=== PATIENT | female | born 1935 | race African-American/Black ===

== ENCOUNTER 2016-10-28 13:46 | Inpatient (IN) ==
--- NOTE | 2016-10-28 14:24 | XRay Report ---
XR chest 1V portable Indication: Cardiomegaly Comparison: 26 July 2016 Findings: The heart and mediastinum are normal in size and configuration. The pulmonary vascularity is normal in caliber. Lung volumes are increased with prominent bronchial markings. Clips are present in the right axilla from previous surgery. No lung infiltrates, effusions, pneumothorax or other abnormality is demonstrated. Impression: Chronic lung changes. No acute process or significant change. PROCEDURE INTERPRETED AT [facility] DEPARTMENT OF RADIOLOGY Final Report Signed by: Dr. Matt Messer
--- NOTE | 2016-10-28 14:29 | CT Report ---
CT brain Indication: Hemiparesis Comparison: 05 June 2016 Technique: Axial CT imaging of the brain is performed without contrast with 3 mm increments. Findings: No evidence of hemorrhage, mass mass effect midline shift or acute infarct seen. There is moderate diffuse cerebral atrophy. There are areas of decreased density seen within the white matter. Focal decreased density and volume loss is present in the left basal ganglia similar to previous exam. Otherwise the brain parenchyma attenuation and differentiation appears within normal limits. The ventricles and cisterns are normal in caliber. No cranial or skull base abnormality is identified. Impression: No evidence of acute process or interval change. PROCEDURE INTERPRETED AT [facility] DEPARTMENT OF RADIOLOGY Final Report Signed by: Dr. Matt Messer
[2016-10-28 14:30] LABS: Basophils % 0.5 % (0.0-0.8); Eosinophils # 0.2 10*3/uL (0.0-0.87); Eosinophils % 2.2 % (0.00-10.9); Hematocrit 37.8 VOL% (35.7-47.0); Hemoglobin 12.1 GM/DL (12.0-16.0); Immature Granulocytes % 0.3 %; Immature Granulocytes Absolute 0.02 #; Lymphocytes # 2.5 10*3/uL (1.4-4.0); Lymphocytes % 33.3 % (21.3-54.2); Mean Corpuscular Hemoglobin 25 PG (27-34); Mean Corpuscular Volume 77.3 FL (87-102); Monocytes # 0.6 10*3/uL (0.11-0.8); Monocytes % 7.4 % (1.7-12.7); Neutrophils # 4.2 10*3/uL (1.4-7.4); Neutrophils % 56.3 % (38.7-73.9); Platelet Count 261 T/CUMM (130-400); Red Blood Count 4.89 MC/CUMM (3.8-5.5); Red Cell Distribution Width 14.9 % (9.3-17.3); White Blood Count 7.4 T/CUMM (4-12)
--- NOTE | 2016-10-28 14:37 | Emergency Department Note ---
Flora Brewster Gwan, am scribing for, and in the presence of, Todd Bermeo MD 14:04 . Elvie Brewster James D, MD, personally performed the services described in this documentation, ascribed by Deep Hines in my presence, and it is both accurate and complete 437 . Arrival - Arrival Chief Complaint: Weakness Stated Complaint: not able to walk ED Nursing Triage Note: c/o weakness and not being able to walk x1 day Mode of Arrival: Wheelchair Limitations: No Limitations Source: Patient, Old Records Reviewed, RN Notes Reviewed - History of Present Illness HPI Narrative: Pt is a 81 y/o female, with a hx of CVA and Carcinoma of the left breast, who presents to the ED with a c/o weakness and no being able to walk with an onset of 1 day. During exam, patient spoke with slow/slurred speech. She is accompanied by her granddaughter. Patient stated that she is weaker on her left side more than her right. Patient continued to note that she fell some time ago and broke her left hip. Granddaughter noted that pt usually walks with a walker and that her speech is altered. Pt has a PMHx of HTN, dyslipidemia, thyroid disorder and osteoporosis. No other problems/complaints reported in ED. length of time since onset would essentially be last night at bedtime. Patient awakened with symptoms this morning. Daughter confirms that the patient has had difficulty swallowing today and difficulty speaking today. She has had difficulty standing from sitting. Onset (ago): day(s) Consistency: constant Severity: moderate Allergies/Adverse Reactions: Allergies Allergy/AdvReac Type Severity Reaction Status Date / Time aspirin Allergy Nose Bleed Verified 06/05/16 15:30 Penicillins AdvReac HIVES Verified 06/05/16 15:30 Home Medications: Home Medications Medication Instructions Recorded Confirmed Type FLUoxetine [PROzac] 10 mg PO QAM 01/11/16 07/24/16 History Pantoprazole Tab [Protonix Tab] 40 mg PO DAILY 06/22/16 07/24/16 History Amlodipine Besylate 10 mg PO DAILY 07/24/16 07/24/16 History Levothyroxine Tab [Synthroid Tab] 50 mcg PO DAILY 07/24/16 07/24/16 History Clopidogrel [Plavix] 75 mg PO QAM 10/28/16 10/28/16 History Review of System - Review of System 12 point system: reviewed and no additional remarkable complaints except as stated - Review of System Constitutional: Present: as per HPI, weakness Neurological: Present: as per HPI, other (slow/slurred speech) Medical,Surgical,& Family Hx - Medical History Cardio: History of: Hypertension Psychological: History of: Depression (after ) Neurology: History of: Cerebrovascular Accident HEENT: History of: Eye Problem Endocrine: History of: Dyslipidemia, Thyroid Disorder Gastrointestinal: History of: GERD Musculoskeletal: History of: Osteoporosis, Musculoskeletal Problems Other: History of: Cancer (carcinoma of the left breast) - Surgical History Thoracic Surgeries: Patient denies;: Organ Transplant HEENT Surgeries: Surgical HX of: Eye Surgery (cataract surgery) Abdominal Surgeries: Surgical HX of: Appendectomy Reproductive Surgeries: Surgical HX of;: Breast Surgery (masectomy left side - 30 years ago), Hysterectomy (partial) - Family History Family History: Reports;: Family Cancer (grandmother), Family Diabetes (mother) , Family Hypertension - Social History Smoking Status: Never smoker Frequency of Alcohol Use: None Type of Drug Use: None Exam Vital Signs: Vital Signs Temperature 99.1 F 10/28/16 13:47 Pulse Rate 80 10/28/16 13:47 Respiratory Rate 18 10/28/16 14:02 Blood Pressure 142/73 10/28/16 13:47 O2 Sat by Pulse Oximetry 98 10/28/16 13:47 GENERAL: This is a well-nourished well-developed chronically ill-appearing black female in no apparent distress. VITAL SIGNS: Reviewed HEENT: Head is atraumatic and normocephalic. Pupils are equal round react to light. Extraocular movements are intact. Oropharynx is benign with moist mucous membranes. NECK: Neck is soft and supple without tenderness. There are no masses. There is no lymphadenopathy. LUNGS: Lungs are clear to auscultation. Chest rises symmetrically. There is no chest wall tenderness. CV: Heart is regular rate and rhythm without murmurs rubs or gallops. ABDOMEN: Abdomen is soft, nontender to palpation. There are no abdominal abnormal masses palpated. There is no organomegaly. Bowel sounds are present and active. SKIN: Skin is warm and dry. No rash. EXTREMITIES: Patient has full range of motion without tenderness. There is no pedal edema. NEUROLOGIC: Awake alert and oriented. Cranial nerves II through XII are grossly intact with the exception of tongue deviation to the right. Motor is 4 over 5 in all extremities bilaterally. Deep tendon reflexes are 2+ and bilaterally equal. Expressive aphasia is present. Course Course Narrative: TPA was not initiated due to patient awakening with symptoms this morning. - Consultations Consultation #1: Discussed with Dr. Ledesma. Patient will be admitted to Dr. Mckeon. Initial orders written for him. MRI of the head will be performed. Time: 15:21 Results - Labs CBC & BMP: 10/28/16 14:08 10/28/16 14:08 Lab Results: I have reviewed the patients labs - EKG EKG results: interpreted by ERMD - Impressions EKG: Normal sinus rhythm with rate of 71, low voltage QRS, nonspecific ST-T wave changes, normal axis. - Diagnostic Findings Procedure: Chest x-ray: image reviewed by me (No infiltrates, no pleural effusions, no cardiomegaly.), CT: image reviewed by me, report reviewed by me ( CT head: No acute intracranial hemorrhage or lesion.) Disposition Clinical Impression: Stroke Case discussed with: patient Disposition: Still a Patient Time of Disposition: 15:20
[2016-10-28 14:45] LABS: PT Patient Result 10.9 SECS; Partial Thromboplastin Time 27.3 SECS (0-40)
[2016-10-28 14:51] LABS: Albumin 3.8 G/DL (3.4-5.0); Bilirubin,Total 0.4 MG/DL (0.2-1.0); Calcium 9.9 MG/DL (8.5-10.1); Osmolality,Calculated 288.4 MOS/KG (273-304); Potassium 4.1 MMOL/L (3.5-5.1); Total Protein 7.8 G/DL (6.4-8.3)
[2016-10-28 15:13] LABS: Apearance,Urine CLEAR (Clear); Bacteria,Urine Occasional /HPF (Few); Bilirubin,Urine Negative (Negative); Blood, Urine Negative (Negative); Glucose,Urine (UA) Negative (Negative); Ketones,Urine Negative (Negative); Nitrite,Urine Negative (Negative); Protein,Urine Negative; RBC,Urine <1 /HPF (0-4); Squamous Epithelial Cell,Urine Occasional /HPF (0-10); Urine Color Straw (Yellow); Urine Specific Gravity 1.013 (1.001-1.035); Urine Urobilinogen < 2.0 EU/DL (0.2-1.0); WBC,Urine 2 /HPF (0-6)
[2016-10-28 15:21] LABS: Barbiturates Screen,Urine Negative (Negative); Benzodiazepines Screen,Urine Negative (Negative); Cannabinoid Screen,Urine Negative (Negative); Opiate Screen,Urine Negative (Negative); Phencyclidine Screen,Urine Negative (Negative)
--- NOTE | 2016-10-28 15:26 | EKG Report ---
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
--- NOTE | 2016-10-28 17:33 | Internal Med History&Physical ---
Assessment and Plan (1) TIA (transient ischemic attack) Status: Acute Assessment and plan: 81-year-old female admitted to acute care * TIA versus acute CVA. Patient has weakness and slurred speech earlier. Her speech appears to be cleared now. She will be admitted. Her CT brain was negative. Will check MRI of brain to evaluate. Will check echocardiogram and carotid ultrasound. Will admit patient to a monitored bed. Will consult neurology when available. The ER physician had a conversation with patient and her family and they decided to stay here other than being transferred to another facility. * Hypertension. Continue current medication * Hyperlipidemia. Will check her lipid profile in the morning * History of previous CVA. Patient is on Plavix * Hypothyroidism. Continue treatment * Discussed with patient and her sister and grandson who are present in the room. Current Visit: Yes (2) History of stroke Status: Acute Current Visit: Yes (3) dyslipidemia Status: Chronic Current Visit: No (4) hypertension Status: Chronic Current Visit: No (5) hypothyroid Status: Chronic Current Visit: No History of Present Illness Chief complaint: Weakness and inability to walk with slurred speech History of present illness: Ms. Mcdaniels is a 81 year old female with history of previous CVA, hypertension, hypothyroidism, depression, dyslipidemia, gastroesophageal reflux disease and breast cancer in the past was brought to the emergency room by family with weakness and not been able to walk for about a day. Apparently patient had slurred speech while ER physician was examining her. She had a CT brain done which showed no acute changes. Patient usually uses a walker after her stroke about a year ago. Patient is seeing her speech is better now. She denies any chest pain or shortness of breath. She denies any nausea vomiting or diarrhea. She denies any fever or chills. She had difficulty walking and standing this morning. She lives with her granddaughter. No history of smoking or alcohol use Home Medications Medication Instructions Recorded Confirmed Type FLUoxetine [PROzac] 10 mg PO QAM 01/11/16 10/28/16 History Pantoprazole Tab [Protonix Tab] 40 mg PO QAM 06/22/16 10/28/16 History Amlodipine Besylate 10 mg PO QAM 07/24/16 10/28/16 History Levothyroxine Tab [Synthroid Tab] 50 mcg PO QAM 07/24/16 10/28/16 History Clopidogrel [Plavix] 75 mg PO QAM 10/28/16 10/28/16 History Allergies Allergy/AdvReac Type Severity Reaction Status Date / Time aspirin Allergy Nose Bleed Verified 06/05/16 15:30 Penicillins AdvReac HIVES Verified 06/05/16 15:30 Medical,Surgical,& Family Hx - Medical History Cardio: History of: Hypertension Psychological: History of: Depression (after ) Neurology: History of: Cerebrovascular Accident HEENT: History of: Eye Problem Endocrine: History of: Dyslipidemia, Thyroid Disorder Gastrointestinal: History of: GERD Musculoskeletal: History of: Osteoporosis, Musculoskeletal Problems Other: History of: Cancer (carcinoma of the left breast) - Surgical History Thoracic Surgeries: Patient denies;: Organ Transplant HEENT Surgeries: Surgical HX of: Eye Surgery (cataract surgery) Abdominal Surgeries: Surgical HX of: Appendectomy Reproductive Surgeries: Surgical HX of;: Breast Surgery (masectomy left side - 30 years ago), Hysterectomy (partial) - Family History Family History: Reports;: Family Cancer (grandmother), Family Diabetes (mother) , Family Hypertension - Social History Smoking Status: Never smoker Frequency of Alcohol Use: None Type of Drug Use: None Marital Status: Single Lives With:: Children Functional capacity: uses cane/walker 12 point system: reviewed and no additional remarkable complaints except as stated (Mentioned in HPI) Exam - Constitutional Exam: Examination: GENERAL: NAD. HEENT: PERRLA. EOMI. Mucous membranes are moist. NECK: Neck is supple. No JVD. No carotid bruit. No thyromegaly. CVS: Regular rate and rhythm. S1 and S2 are normal. RESPIRATORY: Lungs are clear. No rales or rhonchi. ABDOMEN: Soft and nontender. Bowel sounds are present. No hepatosplenomegaly. EXT: No edema. Peripheral pulses are present. JIG OPERATOR: Patient is awake, alert and oriented to time place and person. Cranial nerves II through XII are grossly intact. Motor strength is equal in both upper and lower extremities 5/5. Babinski is downgoing SKIN: Warm and dry. MSK: No obvious deformity. Results - Labs CBC & BMP: 10/28/16 14:08 10/28/16 14:08 Lab Results: I have reviewed the past 24 hour labs
[2016-10-28] MEDS ORDERED: ONDANSETRON 4 MG/2 ML VIAL IV PRN (19:40)
[2016-10-28] MEDS ORDERED: ACETAMINOPHEN 325 MG TABLET PO PRN (19:40)
[2016-10-28] MEDS: DOCUSATE SODIUM 100 MG CAPSULE PO SCH (20:39)
[2016-10-28] MEDS: SODIUM CHLORIDE 0.9% 1,000 ML IV SCH (20:39)
[2016-10-28] MEDS: ENOXAPARIN 40 MG/0.4 ML SYRINGE SUBCUT SCH (20:39)
[2016-10-29] MEDS: SODIUM CHLORIDE 0.9% 1,000 ML IV SCH ×3 (04:49→21:11)
[2016-10-29 05:47] LABS: Basophils # 0.1 10*3/uL (0.0-0.2); Basophils % 0.8 % (0.0-0.8); Eosinophils # 0.2 10*3/uL (0.0-0.87); Eosinophils % 2.6 % (0.00-10.9); Hematocrit 35.2 VOL% (35.7-47.0); Immature Granulocytes % 0.2 %; Immature Granulocytes Absolute 0.01 #; Lymphocytes # 2.4 10*3/uL (1.4-4.0); Lymphocytes % 38.8 % (21.3-54.2); Mean Corpuscular HGB Conc 31.3 GM/DL (32-36); Mean Corpuscular Hemoglobin 24 PG (27-34); Mean Corpuscular Volume 77.9 FL (87-102); Mean Platelet Volume 10.8 FL (9.6-12.0); Monocytes # 0.7 10*3/uL (0.11-0.8); Monocytes % 12.1 % (1.7-12.7); Neutrophils # 2.8 10*3/uL (1.4-7.4); Neutrophils % 45.5 % (38.7-73.9); Platelet Count 248 T/CUMM (130-400); Red Blood Count 4.52 MC/CUMM (3.8-5.5); Red Cell Distribution Width 14.9 % (9.3-17.3); White Blood Count 6.1 T/CUMM (4-12)
[2016-10-29] MEDS: LEVOTHYROXINE 50 MCG TABLET PO SCH (06:11)
[2016-10-29 06:21] LABS: Calcium 9.3 MG/DL (8.5-10.1); Osmolality,Calculated 292.7 MOS/KG (273-304); Potassium 4.2 MMOL/L (3.5-5.1)
[2016-10-29 06:43] LABS: Risk Ratio 3.65; VLDL CHOLESTEROL 16.2 MG/DL
--- NOTE | 2016-10-29 08:07 | Internal Med Progress Note ---
Assessment and Plan (1) TIA (transient ischemic attack) Status: Acute Assessment and plan: 81-year-old female admitted to acute care * TIA versus acute CVA. She does not have any weakness this morning. She is going for MRI. * Hypertension. Stable * Hyperlipidemia. Will check her lipid profile in the morning * History of previous CVA. Patient is on Plavix * Hypothyroidism. Continue treatment * Continue current treatment Current Visit: Yes (2) History of stroke Status: Acute Current Visit: Yes (3) dyslipidemia Status: Chronic Current Visit: No (4) hypertension Status: Chronic Current Visit: No (5) hypothyroid Status: Chronic Current Visit: No Internal Medicine - PN: Subj Interval history: She is feeling better. No complaints this morning. No chest pain or shortness of breath Exam (Progress Note) - Constitutional Vitals: Period Temp Pulse Resp BP Sys/Tracey Pulse Ox Last 24 Hr 97.6 F-97.9 F 59-102 18-20 118-165/55-79 99-100 Exam: Examination: GENERAL: NAD. HEENT: PERRLA. EOMI. NECK: Neck is supple. CVS: Regular rate and rhythm. RESPIRATORY: Lungs are clear. ABDOMEN: Soft and nontender. EXT: No edema. SPECIAL TECHNICAL OPERATIONS OFFICER: Nonfocal MSK: No obvious deformity. Results - Labs CBC & BMP: 10/29/16 05:40 10/29/16 05:40 Lab Results: I have reviewed the past 24 hour labs Quality Measures - Stroke Symptom Onset Unknown: No
[2016-10-29] MEDS ORDERED: PANTOPRAZOLE 40 MG TABLET PO SCH (09:00)
[2016-10-29] MEDS: PANTOPRAZOLE 40 MG TABLET PO SCH (09:18)
[2016-10-29] MEDS: amLODIPine 10 MG TABLET PO SCH (09:18)
[2016-10-29] MEDS: CLOPIDOGREL 75 MG TABLET PO SCH (09:18)
[2016-10-29] MEDS: DOCUSATE SODIUM 100 MG CAPSULE PO SCH ×2 (09:18→21:11)
[2016-10-29] MEDS: FLUoxetine 10 MG CAPSULE PO SCH (09:26)
--- NOTE | 2016-10-29 14:06 | Magnetic Resonance Report ---
Referring physician: Perry Mckeon Exam: MRI brain with and without contrast Date: October 29, 2016 Comparison: CT brain without contrast October 28, 2016, MRI brain November 19, 2015 Reason: Stroke, history of breast cancer Technique: MRI of the brain was performed with and without the use of 10 cc of IV Dotarem contrast. Obtained precontrast images include sagittal T1, axial diffusion-weighted, axial FLAIR, axial T2, axial gradient and axial T1 sequences. Postcontrast sequences include axial and coronal T1 sequences. A 1.5 Rosanna magnet was used. Findings: There are 2 small areas of diffusion restriction with corresponding T2/FLAIR hyperintensity at the junction of the cristiano and medulla on the left. One measures 1 cm, and the other measures 0.5-0.6 cm. This is concerning for acute lacunar type infarctions. There is a small to moderate remote infarction at the left ponce radiata/periventricular white matter. This infarction may have had a subacute component on the previous study of November 19, 2015. There is also now gradient susceptibility in this area, suggesting remote hemorrhage. There is [id number] generalized cerebral atrophy/volume loss. Scattered areas of T2/FLAIR hyperintensity are seen within the cerebral white matter bilaterally. This is similar to before. This is nonspecific but is most consistent with moderate chronic microvascular ischemic change. Wallerian degeneration is also suspected on the left and appears similar to before. A remote lacunar type infarction is also suspected at the left cristiano. Alternatively, this could represent chronic ischemic microvascular change. There is compensatory enlargement of the ventricles but no definite hydrocephalus or midline shift. There is no evidence of recent intracranial hemorrhage, and no suspicious intracranial enhancement is seen. Evaluation of major vascular flow voids is limited by motion artifact. They are unremarkable as visualized. The patient is likely status post cataract surgery. The orbits and sella are otherwise unremarkable, although evaluation is limited by motion artifact. There is scattered mucosal thickening within the bilateral ethmoid air cells and mucosal thickening within the right sphenoid sinus. The mastoid air cells appear clear. Impression: 1. There are 2 small acute lacunar type infarctions at the junction of the cristiano and medulla on the left. 2. Remote infarction at the left ponce radiata/periventricular region. There is also wallerian degeneration on the left, and there may be a remote lacunar infarction at the left cristiano. Note is made of hemosiderin deposition at the left ponce radiata/periventricular region, suggesting remote hemorrhage in this region. 3. There is mild generalized cerebral atrophy/volume loss and probable moderate chronic microvascular ischemic change. This is similar to before. 4. Mild sinus disease. Findings were discussed with Dr. Ledesma on October 29, 2016 at 2:00 PM. This is a critical test. PROCEDURE INTERPRETED AT [facility] DEPARTMENT OF RADIOLOGY Final Report Signed by: Dr. Vanessa Rose
--- NOTE | 2016-10-29 15:04 | ECHO Report ---
Suzie Mcdaniels Exam Date: 10/29/2016 11:37 Referring Physician: Technologist: Scarlet Pleitez RDCS Age: 81 Ht (in): Wt (lb): Gender: F Exam Location: [facility] Echo Indications: Transient cerebral ischemic attack, unspecified, hx CVA, Dyslipidemia, Essential (primary) hypertension, Hypothyroid, hx Breast CA, Weakness, Unspecified abnormalities of gait and mobility, Slurred speech BP: / HR: Rhythm: Sinus Technical Quality: IMPRESSIONS Normal left ventricular size, without hypertrophy, with sigmoid septum. Normal systolic function, estimated left ventricle ejection fraction of 60%. Grade 1 diastolic dysfunction. Mild biatrial enlargement. Thickened mitral valve, with mild concentric regurgitation, without stenosis. Aortic valve sclerosis without stenosis or regurgitation. Borderline pulmonary hypertension. MEASUREMENTS (Male / Female) Normal Values 2D ECHO LV Diastolic Diameter PLAX 3.7 cm 4.2 - 5.9 / 3.9 - 5.3 cm LV Systolic Diameter PLAX 1.8 cm LV Fractional Shortening PLAX 51.4 % IVS Diastolic Thickness 0.9 cm 0.6 - 1.0 / 0.6 - 0.9 cm LVPW Diastolic Thickness 0.9 cm 0.6 - 1.0 / 0.6 - 0.9 cm RV Internal Dim ED PLAX 2.4 cm Aortic Root Diameter 2.6 cm LA Systolic Diameter LX 3.8 cm 3.0 - 4.0 / 2.7 - 3.8 cm DOPPLER TR Peak Velocity 276.0 cm/s TR Peak Gradient 30.5 mmHg FINDINGS Left Ventricle Normal left ventricular size, without hypertrophy, with sigmoid septum. Normal systolic function, estimated left ventricle ejection fraction of 60%. Grade 1 diastolic dysfunction. Right Ventricle The right ventricle is normal in size and function. Right Atrium The right atrium is mildly enlarged. Left Atrium The left atrium is mildly enlarged. Mitral Valve Thickened mitral valve, with mild concentric regurgitation, without stenosis. Aortic Valve Aortic valve sclerosis without stenosis or regurgitation. Tricuspid Valve Morphologically normal tricuspid valve. Mild tricuspid valve regurgitation. Tricuspid regurgitation velocities suggest a PAP of 40 mmHg. Pulmonic Valve Morphologically normal pulmonic valve without significant stenosis. There is no pulmonic regurgitation. Pericardium Normal pericardium without effusion. Aorta Normal ascending aorta dimension. Juan Miguel Collins (Electronically Signed) Final Date: 29 October 2016 15:03
--- NOTE | 2016-10-29 19:56 | Ultrasound Report ---
Referring physician: Perry Mckeon Exam: Carotid ultrasound Date: October 29, 2016 Comparison: None Reason: TIA Technique: Duplex scan of the carotid arteries performed using B-Mode/grayscale imaging and Doppler spectral analysis and color flow. Ultrasound images were captured and stored. Findings: There is mild heterogeneous plaque at the cardiac bifurcations and proximal internal carotid arteries. The right ICA measures 0.56 cm in diameter, and the left ICA measures 0.51 cm in diameter. The peak systolic velocities are as follows: Right CCA: 70 cm/s Right proximal ICA: 52 cm/s Right distal ICA: 45 cm/s Right ECA: 141 cm/s Left CCA: 76 cm/s Left proximal ICA: 42 cm/s Left distal ICA: 73 cm/s Left ECA: 131 cm/s The peak systolic ICA/CCA velocity ratios are as follows: 0.7 on the right and 1.0 on the left. Antegrade flow is present within both vertebral arteries. Impression: 1. Less than 50% stenosis of both cervical internal carotid arteries. 2. The Society of Radiologists in Ultrasound consensus conference criteria was used. The Ultrasound images were captured and stored. PROCEDURE INTERPRETED AT [facility] DEPARTMENT OF RADIOLOGY Final Report Signed by: Dr. Vanessa Rose
[2016-10-29] MEDS: ENOXAPARIN 40 MG/0.4 ML SYRINGE SUBCUT SCH (21:11)
[2016-10-30] MEDS: SODIUM CHLORIDE 0.9% 1,000 ML IV SCH ×2 (05:15→17:29)
[2016-10-30] MEDS: LEVOTHYROXINE 50 MCG TABLET PO SCH (06:37)
[2016-10-30] MEDS: DOCUSATE SODIUM 100 MG CAPSULE PO SCH ×2 (09:08→21:41)
[2016-10-30] MEDS: FLUoxetine 10 MG CAPSULE PO SCH (09:09)
[2016-10-30] MEDS: amLODIPine 10 MG TABLET PO SCH (09:09)
[2016-10-30] MEDS: CLOPIDOGREL 75 MG TABLET PO SCH (09:09)
[2016-10-30] MEDS: PANTOPRAZOLE 40 MG TABLET PO SCH (09:09)
--- NOTE | 2016-10-30 09:45 | Internal Med Progress Note ---
Assessment and Plan (1) TIA (transient ischemic attack) Status: Acute Assessment and plan: 81-year-old female admitted to acute care * TIA versus acute CVA. Her MRI report was discussed with radiologist. 2 areas of new lacunar infarct. Neurology to see her in the morning. May need to add an aspirin but will leave it to neurology * Hypertension. Stable * Hyperlipidemia. Will check her lipid profile in the morning * History of previous CVA. Patient is on Plavix * Hypothyroidism. Continue treatment * Continue current treatment Current Visit: Yes (2) History of stroke Status: Acute Current Visit: Yes (3) dyslipidemia Status: Chronic Current Visit: No (4) hypertension Status: Chronic Current Visit: No (5) hypothyroid Status: Chronic Current Visit: No Internal Medicine - PN: Subj Interval history: She is feeling better. She sat in the chair yesterday. No new complaints Exam (Progress Note) - Constitutional Vitals: Period Temp Pulse Resp BP Sys/Tracey Pulse Ox Last 24 Hr 97.8 F-98.7 F 65-79 18-20 119-143/57-82 95-100 Exam: Examination: GENERAL: NAD. NECK: Neck is supple. CVS: Regular rate and rhythm. RESPIRATORY: Lungs are clear. ABDOMEN: Soft and nontender. EXT: No edema. REDIPPER: Nonfocal MSK: No obvious deformity. Results - Labs CBC & BMP: 10/29/16 05:40 10/29/16 05:40 Lab Results: I have reviewed the past 24 hour labs Quality Measures - Stroke Symptom Onset Unknown: No
[2016-10-30] MEDS: ENOXAPARIN 40 MG/0.4 ML SYRINGE SUBCUT SCH (21:41)
--- NOTE | 2016-10-31 07:57 | Family Practice Progress Note ---
Family Practice - PN: Subj Interval history: Patient was admitted after she had an episode new onset of weakness and slurred speech. Symptoms persisted throughout the day and she was brought to the emergency room. She was noted to have slurred speech and weakness in the emergency room. Head CT was unchanged from previous. She has had previous cerebrovascular accidents. Presently on Plavix. Concern about starting on Coumadin due to falls. MRI reveals 2 new acute lacunar infarcts. Patient is improved today she is still weak but speech is improved. Awaiting neurological consult to see if any consideration of changing medications or therapy. Physical exam is otherwise stable. May discharge later this p.m. after neurological eval. Exam (Progress Note) - Constitutional Vitals: Period Temp Pulse Resp BP Sys/Tracey Pulse Ox Last 24 Hr 97.9 F-98.7 F 73-85 18-20 117-160/61-81 97-99 Results - Labs CBC & BMP: 10/29/16 05:40 10/29/16 05:40 Quality Measures - Stroke Symptom Onset Unknown: No
[2016-10-31] MEDS: PANTOPRAZOLE 40 MG TABLET PO SCH (09:21)
[2016-10-31] MEDS: FLUoxetine 10 MG CAPSULE PO SCH (09:21)
[2016-10-31] MEDS: amLODIPine 10 MG TABLET PO SCH (09:21)
[2016-10-31] MEDS: DOCUSATE SODIUM 100 MG CAPSULE PO SCH ×2 (09:21→20:22)
[2016-10-31] MEDS: CLOPIDOGREL 75 MG TABLET PO SCH (09:21)
[2016-10-31] MEDS: LEVOTHYROXINE 50 MCG TABLET PO SCH (09:21)
--- NOTE | 2016-10-31 14:23 | Neurology Consult Note ---
History of Present Illness History of present illness: Ms. Mcdaniels is a 81 years old -[place] lady with history of previous CVA, hypertension, hypothyroidism, depression, dyslipidemia, gastroesophageal reflux disease and breast cancer in the past was brought to the emergency room by family with weakness and not been able to walk for about a day or two. Apparently patient had slurred speech while ER physician was examining her. She had a CT brain done which showed no acute changes. Patient had a history of stroke Patient usually uses a walker after her stroke about a year ago. Patient is seeing her speech is better now. She denies any chest pain or shortness of breath. She denies any nausea vomiting or diarrhea. She denies any fever or chills. She had difficulty walking and and has some balance difficulties. She lives with her granddaughter. No history of smoking or alcohol use. 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 Carotid ultrasound, echo and lipid panel are all within normal limits. Home Medications Medication Instructions Recorded Confirmed Type FLUoxetine [PROzac] 10 mg PO QAM 01/11/16 10/28/16 History Pantoprazole Tab [Protonix Tab] 40 mg PO QAM 06/22/16 10/28/16 History Amlodipine Besylate 10 mg PO QAM 07/24/16 10/28/16 History Levothyroxine Tab [Synthroid Tab] 50 mcg PO QAM 07/24/16 10/28/16 History Clopidogrel [Plavix] 75 mg PO QAM 10/28/16 10/28/16 History Allergies Allergy/AdvReac Type Severity Reaction Status Date / Time aspirin Allergy Nose Bleed Verified 06/05/16 15:30 Penicillins AdvReac HIVES Verified 06/05/16 15:30 12 point system: reviewed and no additional remarkable complaints except as stated Medical,Surgical,& Family Hx - Medical History Cardio: History of: Hypertension Psychological: History of: Depression (after ) Neurology: History of: Cerebrovascular Accident HEENT: History of: Eye Problem Endocrine: History of: Dyslipidemia, Thyroid Disorder Respiratory: History of: Pneumonia Gastrointestinal: History of: GERD Musculoskeletal: History of: Osteoporosis, Musculoskeletal Problems Other: History of: Cancer (carcinoma of the left breast) - Surgical History Thoracic Surgeries: Patient denies;: Organ Transplant HEENT Surgeries: Surgical HX of: Eye Surgery (cataract surgery) Abdominal Surgeries: Surgical HX of: Appendectomy Reproductive Surgeries: Surgical HX of;: Breast Surgery (masectomy left side - 30 years ago), Hysterectomy (partial) - Family History Family History: Reports;: Family Cancer (grandmother), Family Diabetes (mother) , Family Hypertension - Social History Smoking Status: Never smoker Frequency of Alcohol Use: None Type of Drug Use: None Exam - Constitutional Vitals: Period Temp Pulse Resp BP Sys/Tracey Pulse Ox Last 24 Hr 97.9 F-98.6 F 67-85 20-20 134-160/61-81 97-99 Exam: GENERAL: Patient is in no acute distress. NECK: Neck is supple. There is no JVD. No carotid bruits present. No thyroid masses. CVS: First and second heart sounds are normal. There is no S3 present. Regular rate and rhythm. RESPIRATORY: Lungs are clear to auscultation without any rales or rhonchi. ABDOMEN: Soft and non-tender. Bowel sounds are present. There is no hepatosplenomegaly. EXT: There is no palpable edema. Peripheral pulses are present. Skin: No rashes Central Nervous system: General: Alert, awake and Oriented x 3 Speech: Fluent Comprehension: Intact and normal Facial expressions: Normal Cranial Nerves: CN1/Olfactory: Normal CN II/ Optic: Normal, Visual Khalil unreliable CN III, and : CARYL & EOMI CN V: Normal & intact CN VII: face is symmetric CNVIII: Normal CN XI/X/XI/XII: Intact and Normal Motor: Bulk and Tone is normal. Strength in the right 5/5 Strength in the left 3-4/5 Sensory: Grossly intact for all the modalities of PP, LT and temp sense Reflexes: 1+ and symmetrical Cerebellar function: Dysmetric finger to nose and heel to hernandez testing in the left. Gait: Ataxic and unsteady gait Results - Labs CBC & BMP: 10/29/16 05:40 10/29/16 05:40 Assessment and Plan (1) Acute CVA (cerebrovascular accident) Status: Chronic Assessment and plan: Stop Plavix Start Eliquis 2.5 mg twice a day Okay to go home today and we will admit her to [facility] by Monday. Thank you for the consult Current Visit: No
[2016-10-31] MEDS: ENOXAPARIN 40 MG/0.4 ML SYRINGE SUBCUT SCH (20:22)
[2016-11-01 05:00] LABS: Basophils % 0.6 % (0.0-0.8); Eosinophils # 0.2 10*3/uL (0.0-0.87); Eosinophils % 3.5 % (0.00-10.9); Hematocrit 33.4 VOL% (35.7-47.0); Hemoglobin 10.4 GM/DL (12.0-16.0); Immature Granulocytes % 0.3 %; Immature Granulocytes Absolute 0.02 #; Lymphocytes # 2.5 10*3/uL (1.4-4.0); Lymphocytes % 38.5 % (21.3-54.2); Mean Corpuscular HGB Conc 31.1 GM/DL (32-36); Mean Corpuscular Hemoglobin 24 PG (27-34); Mean Platelet Volume 11.4 FL (9.6-12.0); Monocytes # 0.7 10*3/uL (0.11-0.8); Monocytes % 11.1 % (1.7-12.7); Platelet Count 228 T/CUMM (130-400); Red Blood Count 4.28 MC/CUMM (3.8-5.5); White Blood Count 6.6 T/CUMM (4-12)
[2016-11-01 05:45] LABS: Calcium 8.8 MG/DL (8.5-10.1); Osmolality,Calculated 291.7 MOS/KG (273-304); Potassium 4.3 MMOL/L (3.5-5.1)
[2016-11-01] MEDS: LEVOTHYROXINE 50 MCG TABLET PO SCH (06:02)
--- NOTE | 2016-11-01 07:55 | Discharge Summary ---
Hospital Course - Hospital Course Hospital Course: History of present illness: Ms. Mcdaniels is a 81 year old female with history of previous CVA, hypertension, hypothyroidism, depression, dyslipidemia, gastroesophageal reflux disease and breast cancer in the past was brought to the emergency room by family with weakness and not been able to walk for about a day. Apparently patient had slurred speech while ER physician was examining her. She had a CT brain done which showed no acute changes. Patient usually uses a walker after her stroke about a year ago. Patient is seeing her speech is better now. She denies any chest pain or shortness of breath. She denies any nausea vomiting or diarrhea. She denies any fever or chills. She had difficulty walking and standing this morning. Hospital course-patient was admitted to hospital lab and x-ray studies obtained. He was started on appropriate anticoagulants and medication. Patient's symptoms rapidly resolved. MRI of the brain reveals 2 new lacunar infarcts at the junction of the cristiano and nodule on the left. Patient was seen in consultation by . He has recommended stopping the Plavix and started on Eliquis. Patient is stable at time of discharge arrangements have been made for her to be admitted to [facility] rehab later this week. Arrangements will be made prior to discharge. We will have her call or return to the emergency room if condition worsens or new problems develop. I will follow-up after discharge from [facility] Diagnosis - Discharge Diagnosis (1) Acute CVA Status: Acute (2) Previous CVAs Status: Acute (3) Hypertension Status: Chronic (4) dyslipidemia Status: Chronic (5) Hypothyroid Status: Acute (6) left mastectomy for carcinoma Status: Chronic Discharge Plan - Discharge Data Disposition: Disch To Home/Self Care Condition at Discharge: Stable Discharge Diet: advance to your usual diet Activity: ambulate only with your walker Weight Bearing at Discharge: weight bear as tolerated Contact your physician if you experience:: fever over 101, Shortness of breath - Discharge Medications New Apixaban [Eliquis] 2.5 mg PO BID #60 tablet Continue FLUoxetine [PROzac] 10 mg PO QAM Pantoprazole Tab [Protonix Tab] 40 mg PO QAM Amlodipine Besylate 10 mg PO QAM Levothyroxine Tab [Synthroid Tab] 50 mcg PO QAM Discontinued Clopidogrel [Plavix] 75 mg PO QAM - Follow Up or Referral Follow Up: Perry Mckeon DO [Physician] - (We will plan to follow-up after discharge from [facility]) - Forms/Instructions Exam - Constitutional Vitals: Period Temp Pulse Resp BP Sys/Tracey Pulse Ox Last 24 Hr 97.5 F-98.5 F 62-74 20-20 119-133/56-65 93-97 General appearance: no acute distress - Head Head exam: Present: normal inspection - ENT ENT exam: Present: normal exam - Neck Neck exam: Present: normal inspection - Respiratory Respiratory exam: Present: clear to auscultation bilaterally - Cardiovascular Cardiovascular exam: Present: regular rate and rhythm - GI/Abdominal GI/Abdominal exam: Present: normal bowel sounds, soft - Extremities Exam Extremities exam: Present: other (Some generalized weakness) - Back Exam Back exam: Present: normal inspection - Neurological Exam Neurological exam: Present: alert - Psychiatric Psychiatric exam: Present: flat affect - Skin Skin exam: Present: normal color Discharge Results Labs on day of discharge: Labs from last 24 hours 11/01/16 11/01/16 04:32 04:32 WBC 6.6 RBC 4.28 Hgb 10.4 L Hct 33.4 L MCV 78.0 L MCH 24 L MCHC 31.1 L RDW 15.0 Plt Count 228 MPV 11.4 Neut % (Auto) 46.0 Lymph % (Auto) 38.5 [place] % (Auto) 11.1 Eos % (Auto) 3.5 Baso % (Auto) 0.6 Neut # (Auto) 3.0 Lymph # (Auto) 2.5 [place] # (Auto) 0.7 Eos # (Auto) 0.2 Baso # (Auto) 0.0 Immature Gran % 0.3 Nucleated RBC % 0.0 Immature Gran # 0.02 Nucleated RBCs # 0.00 Sodium 145 Potassium 4.3 Chloride 108 H Carbon Dioxide 27 Anion Gap 14.3 BUN 24 H Creatinine 1.50 H GFR Calculation 32 BUN/Creatinine Ratio 16.00 Glucose 107 H Calculated Osmolality 291.7 Calcium 8.8 DS: Provider Date of admission: 10/28/16 15:22 Primary care physician: . No PCP Attending physician on admission: Perry Mckeon DO Consults: 10/28/16 17:42 Consult to Occupational Therapy [CONS] Routine Reason for Occupational Therapy: Evaluate and Treat Consult to Physical Therapy [CONS] Routine Reason for Physical Therapy: Evaluate and Treat 10/28/16 19:40 Consult to Case Mgmt/Social Srvs [CONS] Routine Reason for Case Mgmt/Social Srvs: Discharge Planning Consult to Physical Therapy [CONS] Routine Reason for Physical Therapy: Weakness Start Therapy: Today 10/28/16 19:49 Consult to Pharmacy [CONS] Routine Reason for Pharmacy Consult: Adjust Meds Renal Funct 10/28/16 20:31 Consult to Dietitian [CONS] Routine Reason for Dietitian: Other Consult Comment: admission assessment 10/31/16 07:30 Consult to Physician [CONS] Routine Comment: cva Consulting Provider: Emerson Tapia Discharging clinician: Perry Mckeon DO
[2016-11-01] MEDS: amLODIPine 10 MG TABLET PO SCH (09:33)
[2016-11-01] MEDS: FLUoxetine 10 MG CAPSULE PO SCH (09:33)
[2016-11-01] MEDS: PANTOPRAZOLE 40 MG TABLET PO SCH (09:33)
[2016-11-01] MEDS: DOCUSATE SODIUM 100 MG CAPSULE PO SCH ×2 (09:33→21:27)
[2016-11-01] MEDS: APIXABAN 2.5 MG TABLET PO SCH ×2 (09:37→21:26)
[2016-11-01] MEDS: ENOXAPARIN 40 MG/0.4 ML SYRINGE SUBCUT SCH (20:42)
[2016-11-02] MEDS: LEVOTHYROXINE 50 MCG TABLET PO SCH (06:22)
--- NOTE | 2016-11-02 07:58 | Family Practice Progress Note ---
Family Practice - PN: Subj Interval history: Patient presently doing well. She was discharged by me yesterday for the intention of being admitted to [facility] on . Apparently these arrangements were changed and now she is to be admitted to swing bed today. All orders and discharge information has been completely. We will plan to follow on discharge from swing bed Exam (Progress Note) - Constitutional Vitals: Period Temp Pulse Resp BP Sys/Tracey Pulse Ox Last 24 Hr 97.9 F-98.8 F 51-77 16-20 115-133/54-88 94-100 Results - Labs CBC & BMP: 11/01/16 04:32 11/01/16 04:32 Assessment and Plan (1) Acute CVA Status: Acute Current Visit: Yes (2) Previous CVAs Status: Acute Current Visit: Yes (3) Hypertension Status: Chronic Current Visit: No (4) dyslipidemia Status: Chronic Current Visit: No (5) Hypothyroid Status: Acute Current Visit: No (6) left mastectomy for carcinoma Status: Chronic Current Visit: No Quality Measures - Stroke Symptom Onset Unknown: No Specialty Discharge - Follow Up or Referrals Follow up with: Perry Mckeon DO [Physician] - (We will plan to follow-up after discharge from [facility])
[2016-11-02] MEDS: FLUoxetine 10 MG CAPSULE PO SCH (09:31)
[2016-11-02] MEDS: PANTOPRAZOLE 40 MG TABLET PO SCH (09:31)
[2016-11-02] MEDS: APIXABAN 2.5 MG TABLET PO SCH (09:31)
[2016-11-02] MEDS: amLODIPine 10 MG TABLET PO SCH (09:31)
[2016-11-02] MEDS: DOCUSATE SODIUM 100 MG CAPSULE PO SCH (09:31)
[2016-11-02 09:52] VITALS: BP 128/61
== END 2016-11-02 10:50 | disposition home health service (06) | DRG 66 ==
LOC: N.ED 13:46 → N.EDINP 15:22 → N.2E 18:05
PROVIDERS: ADMIT Family Medicine; ATTEND Family Medicine

== ENCOUNTER 2021-10-02 08:19 | Observation (INO) ==
[2021-10-02 09:35] LABS: Basophils # 0.1 10*3/uL (0.0-0.2); Basophils % 0.8 % (0.0-0.8); Eosinophils # 0.2 10*3/uL (0.0-0.87); Eosinophils % 2.2 % (0.00-10.9); Hematocrit 37.7 VOL% (35.7-47.0); Immature Granulocytes % 0.4 %; Immature Granulocytes Absolute 0.03 #; Lymphocytes # 2.5 10*3/uL (1.4-4.0); Lymphocytes % 31.6 % (21.3-54.2); Mean Corpuscular HGB Conc 31.8 GM/DL (32-36); Mean Corpuscular Volume 78.9 FL (87-102); Mean Platelet Volume 10.8 FL (9.6-12.0); Platelet Count 270 T/CUMM (130-400); Red Blood Count 4.78 MC/CUMM (3.8-5.5); Red Cell Distribution Width 15.5 % (9.3-17.3); White Blood Count 7.8 T/CUMM (4-12)
[2021-10-02 09:58] LABS: Albumin 3.5 G/DL (3.4-5.0); Bilirubin,Total 1.1 MG/DL (0.20-1.00); Calcium 9.5 MG/DL (8.5-10.1); Osmolality,Calculated 281.1 MOS/KG (273-304); Potassium 4.6 MMOL/L (3.5-5.1); Total Protein 8.1 G/DL (6.4-8.2)
[2021-10-02] MEDS ORDERED: LACTATED RINGERS 1,000 ML IV ONE (10:07)
[2021-10-02 10:45] LABS: Atypical Lymphocytes Few; Eosinophils 1 % (0-10); Lymphocytes 37 % (20-55); Segmented Neutrophils 56 % (50-85); Total Cells Counted 100
[2021-10-02 10:46] LABS: Hypochromia 1+; Microcytosis 1+; Ovalocytes Few; Platelet Estimate Normal; Polychromasia Slight; Target Cells Few
[2021-10-02 10:48] LABS: Bilirubin,Urine Negative (Negative); Blood, Urine Negative (Negative); Glucose,Urine (UA) Negative (Negative); Hyaline Casts,Urine 1 /LPF (0-3); Ketones,Urine Negative (Negative); Nitrite,Urine Negative (Negative); Protein,Urine Negative; Urine Appearance CLEAR (Clear); Urine Color Straw (Yellow); Urine Specific Gravity 1.009 (1.001-1.035); Urine Urobilinogen < 2.0 EU/DL (<2.0)
[2021-10-02] MEDS ORDERED: ONDANSETRON 4 MG/2 ML VIAL IV PRN (13:52)
[2021-10-02] MEDS ORDERED: ACETAMINOPHEN 325 MG TABLET PO PRN (13:52)
[2021-10-02] MEDS: DOCUSATE SODIUM 100 MG CAPSULE PO SCH (22:18)
[2021-10-02] MEDS: SODIUM CHLORIDE 0.9% 1,000 ML IV SCH (23:52)
[2021-10-03 07:10] LABS: Basophils # 0.1 10*3/uL (0.0-0.2); Basophils % 0.7 % (0.0-0.8); Eosinophils # 0.2 10*3/uL (0.0-0.87); Eosinophils % 2.6 % (0.00-10.9); Hemoglobin 10.6 GM/DL (12.0-16.0); Immature Granulocytes % 0.1 %; Immature Granulocytes Absolute 0.01 #; Lymphocytes # 2.3 10*3/uL (1.4-4.0); Lymphocytes % 31.3 % (21.3-54.2); Mean Corpuscular HGB Conc 31.2 GM/DL (32-36); Mean Corpuscular Volume 79.3 FL (87-102); Mean Platelet Volume 10.6 FL (9.6-12.0); Monocytes % 8.6 % (1.7-12.7); Neutrophils % 56.7 % (38.7-73.9); Platelet Count 264 T/CUMM (130-400); Red Blood Count 4.29 MC/CUMM (3.8-5.5); Red Cell Distribution Width 15.5 % (9.3-17.3); White Blood Count 7.3 T/CUMM (4-12)
[2021-10-03 07:29] LABS: Albumin 3.1 G/DL (3.4-5.0); Bilirubin,Total 0.5 MG/DL (0.20-1.00); Calcium 9.5 MG/DL (8.5-10.1); Osmolality,Calculated 276.8 MOS/KG (273-304); Potassium 4.8 MMOL/L (3.5-5.1); Total Protein 7.5 G/DL (6.4-8.2)
[2021-10-03 08:47] LABS: Ovalocytes Few
[2021-10-03 08:53] LABS: Target Cells Few
[2021-10-03 08:54] LABS: Hypochromia 1+; Platelet Estimate Normal
[2021-10-03] MEDS: SODIUM CHLORIDE 0.9% 1,000 ML IV SCH ×2 (09:55→22:48)
[2021-10-03] MEDS: APIXABAN 2.5 MG TABLET PO SCH ×2 (10:56→21:39)
[2021-10-03] MEDS: DOCUSATE SODIUM 100 MG CAPSULE PO SCH ×2 (10:56→21:39)
[2021-10-03] MEDS: OXYBUTYNIN 5 MG TABLET PO SCH ×3 (10:56→21:39)
[2021-10-03] MEDS: amLODIPine 5 MG TABLET PO SCH (10:57)
[2021-10-03] MEDS: FLUoxetine 20 MG CAPSULE PO SCH (10:57)
[2021-10-03] MEDS: PANTOPRAZOLE 40 MG TABLET PO SCH (10:57)
[2021-10-03] MEDS ORDERED: ENOXAPARIN 30 MG/0.3 ML SYRINGE SUBCUT SCH (14:00)
[2021-10-03] MEDS ORDERED: MULTIVITAMIN INJ 10 ML, ZINC/COPPER/MANGANESE/SELENIUM 1 ML in AMINO ACIDS/DEXT/LYTES 4... IV SCH (17:00)
[2021-10-03] MEDS: MEGESTROL 400 MG/10 ML UDCUP PO SCH (21:39)
[2021-10-03] MEDS: QUEtiapine 25 MG TABLET PO SCH (21:39)
[2021-10-04 04:24] LABS: Basophils # 0.1 10*3/uL (0.0-0.2); Basophils % 0.7 % (0.0-0.8); Eosinophils # 0.2 10*3/uL (0.0-0.87); Hematocrit 32.9 VOL% (35.7-47.0); Hemoglobin 10.4 GM/DL (12.0-16.0); Immature Granulocytes % 0.1 %; Immature Granulocytes Absolute 0.01 #; Lymphocytes # 2.9 10*3/uL (1.4-4.0); Lymphocytes % 42.9 % (21.3-54.2); Mean Corpuscular HGB Conc 31.6 GM/DL (32-36); Mean Corpuscular Volume 80.2 FL (87-102); Mean Platelet Volume 10.5 FL (9.6-12.0); Monocytes % 9.2 % (1.7-12.7); Neutrophils % 44.1 % (38.7-73.9); Platelet Count 263 T/CUMM (130-400); Red Cell Distribution Width 15.3 % (9.3-17.3); White Blood Count 6.8 T/CUMM (4-12)
[2021-10-04 04:45] LABS: Hypochromia 1+; Microcytosis 1+; Ovalocytes Slight
[2021-10-04 04:46] LABS: Platelet Estimate Normal
[2021-10-04 04:52] LABS: Calcium 9.2 MG/DL (8.5-10.1); Osmolality,Calculated 282.4 MOS/KG (273-304); Potassium 4.9 MMOL/L (3.5-5.1)
[2021-10-04] MEDS: SODIUM CHLORIDE 0.9% 1,000 ML IV SCH (05:54)
[2021-10-04] MEDS: MEGESTROL 400 MG/10 ML UDCUP PO SCH ×2 (09:43→21:33)
[2021-10-04] MEDS: PANTOPRAZOLE 40 MG TABLET PO SCH (09:44)
[2021-10-04] MEDS: amLODIPine 5 MG TABLET PO SCH (09:44)
[2021-10-04] MEDS: FLUoxetine 20 MG CAPSULE PO SCH (09:44)
[2021-10-04] MEDS: OXYBUTYNIN 5 MG TABLET PO SCH ×3 (09:44→21:33)
[2021-10-04] MEDS: APIXABAN 2.5 MG TABLET PO SCH ×2 (09:44→21:34)
[2021-10-04] MEDS: DOCUSATE SODIUM 100 MG CAPSULE PO SCH ×2 (09:44→21:34)
[2021-10-04] MEDS: MAGNESIUM SULF INJ 2 GM in SODIUM CHLORIDE 0.9% 1,000 ML IV SCH ×2 (11:18→20:29)
[2021-10-04] MEDS ORDERED: [UNRECOGNIZED DRUG - OTHER] IV SCH (17:00)
[2021-10-04] MEDS ORDERED: ZINC IV SCH (17:00)
[2021-10-04] MEDS ORDERED: MANGANESE IV SCH (17:00)
[2021-10-04] MEDS ORDERED: COPPER IV SCH (17:00)
[2021-10-04] MEDS ORDERED: SELENIUM IV SCH (17:00)
[2021-10-04] MEDS ORDERED: MULTIVITAMIN IV SCH (17:00)
[2021-10-04] MEDS: QUEtiapine 25 MG TABLET PO SCH (21:33)
[2021-10-05 05:03] LABS: Basophils % 0.4 % (0.0-0.8); Eosinophils # 0.2 10*3/uL (0.0-0.87); Eosinophils % 2.9 % (0.00-10.9); Hemoglobin 10.3 GM/DL (12.0-16.0); Immature Granulocytes % 0.1 %; Immature Granulocytes Absolute 0.01 #; Lymphocytes # 2.5 10*3/uL (1.4-4.0); Lymphocytes % 36.4 % (21.3-54.2); Mean Corpuscular HGB Conc 31.2 GM/DL (32-36); Mean Corpuscular Volume 80.3 FL (87-102); Mean Platelet Volume 10.8 FL (9.6-12.0); Monocytes % 10.2 % (1.7-12.7); Platelet Count 270 T/CUMM (130-400); Red Blood Count 4.11 MC/CUMM (3.8-5.5); Red Cell Distribution Width 15.5 % (9.3-17.3); White Blood Count 6.9 T/CUMM (4-12)
[2021-10-05 05:57] LABS: Calcium 9.2 MG/DL (8.5-10.1); Osmolality,Calculated 277.8 MOS/KG (273-304)
[2021-10-05] MEDS: APIXABAN 2.5 MG TABLET PO SCH (09:14)
[2021-10-05] MEDS: OXYBUTYNIN 5 MG TABLET PO SCH (09:14)
[2021-10-05] MEDS: amLODIPine 5 MG TABLET PO SCH (09:14)
[2021-10-05] MEDS: DOCUSATE SODIUM 100 MG CAPSULE PO SCH (09:14)
[2021-10-05] MEDS: PANTOPRAZOLE 40 MG TABLET PO SCH (09:15)
[2021-10-05] MEDS: FLUoxetine 20 MG CAPSULE PO SCH (09:15)
[2021-10-05] MEDS: MEGESTROL 400 MG/10 ML UDCUP PO SCH (09:15)
[2021-10-05 11:29] VITALS: BP 143/66
[2021-10-05] MEDS: MAGNESIUM SULF INJ 2 GM in SODIUM CHLORIDE 0.9% 1,000 ML IV SCH (12:08)
[2021-10-05] MEDS ORDERED: MULTIVITAMIN INJ 10 ML, ZINC/COPPER/MANGANESE/SELENIUM 1 ML in AMINO ACIDS/DEXT/LYTES 4... IV SCH (17:00)
== END 2021-10-05 13:39 | disposition home or self-care (01) ==
LOC: N.ED 08:19 → N.EDINP 08:19 → N.TELEN 21:00
PROVIDERS: ADMIT Family Medicine; ATTEND Family Medicine

== ENCOUNTER 2022-07-31 13:17 | Inpatient (IN) ==
[2022-07-31] MEDS ORDERED: SODIUM CHLORIDE 0.9% 500 ML IV STA ×2 (13:51→15:29)
[2022-07-31 14:41] LABS: Basophils % 0.3 % (0.0-0.8); Hematocrit 52.2 VOL% (35.7-47.0); Hemoglobin 15.9 GM/DL (12.0-16.0); Immature Granulocytes % 0.7 %; Immature Granulocytes Absolute 0.08 #; Lymphocytes # 1.3 10*3/uL (1.4-4.0); Lymphocytes % 11.3 % (21.3-54.2); Mean Corpuscular HGB Conc 30.5 GM/DL (32-36); Mean Corpuscular Volume 81.9 FL (87-102); Mean Platelet Volume 12.7 FL (9.6-12.0); Monocytes # 0.7 10*3/uL (0.11-0.8); Monocytes % 5.8 % (1.7-12.7); Neutrophils % 81.9 % (38.7-73.9); Platelet Count 317 T/CUMM (130-400); Red Blood Count 6.37 MC/CUMM (3.8-5.5); Red Cell Distribution Width 16.3 % (9.3-17.3); White Blood Count 11.6 T/CUMM (4-12)
[2022-07-31 14:42] LABS: Albumin 4.6 G/DL (3.4-5.0); Bilirubin,Total 0.4 MG/DL (0.20-1.00); Osmolality,Calculated 338.8 MOS/KG (273-304); Potassium 5.2 MMOL/L (3.5-5.1)
[2022-07-31] MEDS ORDERED: SODIUM CHLORIDE 0.9% 1,000 ML IV STA (14:54)
[2022-07-31] MEDS ORDERED: INSULIN REGULAR 100 UNIT/ML IV STA ×2 (14:55→14:56)
[2022-07-31 14:59] LABS: Hyaline Casts,Urine 15 /LPF (0-3); Mucus,Urine Occasional /LPF (Occasional)
[2022-07-31 15:01] LABS: Bilirubin,Urine Moderate mg/dL (Negative); Blood, Urine Trace mg/dL (Negative); Glucose,Urine (UA) >1000 mg/dL (Negative); Ketones,Urine 15 mg/dL (Negative); Nitrite,Urine Negative (Negative); Protein,Urine 100 mg/dL (Negative); Urine Appearance Slightly Hazy (Clear); Urine Color Yellow (Yellow); Urine Specific Gravity 1.025 (1.001-1.035); Urine Urobilinogen 0.2 eU/dL (<2.0)
[2022-07-31] MEDS ORDERED: hydrALAZINE 20 MG/1 ML VIAL IV PRN (16:16)
[2022-07-31] MEDS ORDERED: ALBUTEROL 2.5 MG/3 ML NEB RESP TX PRN (16:16)
[2022-07-31] MEDS ORDERED: ONDANSETRON 4 MG/2 ML VIAL IV PRN (16:16)
[2022-07-31] MEDS ORDERED: ACETAMINOPHEN 325 MG TABLET PO PRN (16:16)
[2022-07-31] MEDS ORDERED: LACTULOSE 20 GM/30 ML UDCUP PO PRN (16:16)
[2022-07-31] MEDS ORDERED: GLUCAGON 1 MG VIAL IM PRN (17:48)
[2022-07-31] MEDS ORDERED: DEXTROSE 10% 250 ML BAG IV PRN (18:14)
[2022-07-31] MEDS ORDERED: INSULIN LISPRO 100 UNIT/ML SUBCUT ONE (21:12)
[2022-07-31] MEDS: DOCUSATE SODIUM 100 MG CAPSULE PO SCH (21:31)
[2022-07-31] MEDS: HEPARIN 5,000 UNIT/1 ML VIAL SUBCUT SCH (21:35)
[2022-08-01] MEDS: INSULIN LISPRO 100 UNIT/ML SUBCUT SCH ×6 (00:45→22:25)
[2022-08-01] MEDS: LACTATED RINGERS 1,000 ML IV SCH ×2 (01:00→04:42)
[2022-08-01 06:16] LABS: Basophils % 0.4 % (0.0-0.8); Eosinophils # 0.1 10*3/uL (0.0-0.87); Eosinophils % 1.1 % (0.00-10.9); Hematocrit 42.4 VOL% (35.7-47.0); Immature Granulocytes % 0.4 %; Immature Granulocytes Absolute 0.04 #; Lymphocytes # 2.5 10*3/uL (1.4-4.0); Lymphocytes % 22.9 % (21.3-54.2); Mean Corpuscular HGB Conc 31.4 GM/DL (32-36); Mean Platelet Volume 12.1 FL (9.6-12.0); Monocytes % 9.3 % (1.7-12.7); Neutrophils % 65.9 % (38.7-73.9); Red Cell Distribution Width 15.1 % (9.3-17.3); White Blood Count 10.8 T/CUMM (4-12)
[2022-08-01 06:27] LABS: Hemoglobin 13.3 GM/DL (12.0-16.0); Platelet Count 250 T/CUMM (130-400)
[2022-08-01 06:59] LABS: Calcium 11.1 MG/DL (8.5-10.1); Osmolality,Calculated 324.9 MOS/KG (273-304); Potassium 3.7 MMOL/L (3.5-5.1); Risk Ratio 3.89; Thyroid Stimulating Hormone 0.055 uIU/ml (0.358-3.74); VLDL Cholesterol 18.4 MG/DL
[2022-08-01] MEDS: PANTOPRAZOLE 40 MG TABLET PO SCH (08:05)
[2022-08-01] MEDS: DOCUSATE SODIUM 100 MG CAPSULE PO SCH ×2 (08:05→21:55)
[2022-08-01] MEDS: HEPARIN 5,000 UNIT/1 ML VIAL SUBCUT SCH ×2 (08:05→21:56)
[2022-08-01] MEDS: POLYETHYLENE GLYCOL POWDER 17 GM PACK PO SCH (11:09)
[2022-08-01] MEDS: SODIUM CHLORIDE 23.4% CONC INJ 38.5 MEQ in STERILE WATER INJ 1,000 ML IV SCH (12:05)
[2022-08-01] MEDS ORDERED: OXYBUTYNIN 5 MG TABLET PO PRN (13:37)
[2022-08-01 13:49] LABS: Free T4 (Free Thyroxine) 1.62 NG/DL (0.76-1.46)
[2022-08-01] MEDS: QUEtiapine 25 MG TABLET PO SCH (21:55)
[2022-08-01] MEDS: CYPROHEPTADINE 4 MG TABLET PO SCH (21:55)
[2022-08-02] MEDS: SODIUM CHLORIDE 23.4% CONC INJ 38.5 MEQ in STERILE WATER INJ 1,000 ML IV SCH ×3 (01:36→15:40)
[2022-08-02] MEDS: INSULIN LISPRO 100 UNIT/ML SUBCUT SCH ×7 (02:31→21:06)
[2022-08-02] MEDS: CETIRIZINE 10 MG TABLET PO SCH (05:16)
[2022-08-02 05:27] LABS: Basophils # 0.1 10*3/uL (0.0-0.2); Basophils % 0.6 % (0.0-0.8); Eosinophils # 0.2 10*3/uL (0.0-0.87); Eosinophils % 2.4 % (0.00-10.9); Hematocrit 33.5 VOL% (35.7-47.0); Hemoglobin 10.7 GM/DL (12.0-16.0); Immature Granulocytes % 0.3 %; Immature Granulocytes Absolute 0.03 #; Lymphocytes # 3.3 10*3/uL (1.4-4.0); Lymphocytes % 33.3 % (21.3-54.2); Mean Corpuscular HGB Conc 31.9 GM/DL (32-36); Mean Corpuscular Volume 79.8 FL (87-102); Mean Platelet Volume 12.8 FL (9.6-12.0); Monocytes # 0.7 10*3/uL (0.11-0.8); Monocytes % 7.3 % (1.7-12.7); Neutrophils % 56.1 % (38.7-73.9); Platelet Count 179 T/CUMM (130-400); Red Cell Distribution Width 14.6 % (9.3-17.3); White Blood Count 9.9 T/CUMM (4-12)
[2022-08-02 05:49] LABS: Calcium 9.1 MG/DL (8.5-10.1); Osmolality,Calculated 301.6 MOS/KG (273-304); Potassium 3.5 MMOL/L (3.5-5.1)
[2022-08-02] MEDS: SIMVASTATIN 20 MG TABLET PO SCH (08:17)
[2022-08-02] MEDS: DOCUSATE SODIUM 100 MG CAPSULE PO SCH ×2 (08:17→21:07)
[2022-08-02] MEDS: POLYETHYLENE GLYCOL POWDER 17 GM PACK PO SCH (08:17)
[2022-08-02] MEDS: PANTOPRAZOLE 40 MG TABLET PO SCH (08:17)
[2022-08-02] MEDS: FLUoxetine 20 MG CAPSULE PO SCH (08:17)
[2022-08-02] MEDS: HEPARIN 5,000 UNIT/1 ML VIAL SUBCUT SCH ×2 (08:18→21:06)
[2022-08-02] MEDS ORDERED: VANCOMYCIN INJ 1,000 MG in SODIUM CHLORIDE 0.9% 250 ML IV ONE (12:10)
[2022-08-02] MEDS: QUEtiapine 25 MG TABLET PO SCH (21:07)
[2022-08-02] MEDS: CYPROHEPTADINE 4 MG TABLET PO SCH (21:07)
[2022-08-03] MEDS: INSULIN LISPRO 100 UNIT/ML SUBCUT SCH ×6 (01:31→22:09)
[2022-08-03] MEDS: SODIUM CHLORIDE 23.4% CONC INJ 38.5 MEQ in STERILE WATER INJ 1,000 ML IV SCH ×2 (05:18→18:26)
[2022-08-03] MEDS: CETIRIZINE 10 MG TABLET PO SCH (05:33)
[2022-08-03 06:37] LABS: Basophils # 0.1 10*3/uL (0.0-0.2); Basophils % 0.5 % (0.0-0.8); Eosinophils # 0.2 10*3/uL (0.0-0.87); Hematocrit 38.5 VOL% (35.7-47.0); Hemoglobin 11.8 GM/DL (12.0-16.0); Immature Granulocytes % 0.5 %; Immature Granulocytes Absolute 0.05 #; Lymphocytes # 2.9 10*3/uL (1.4-4.0); Lymphocytes % 26.9 % (21.3-54.2); Mean Corpuscular HGB Conc 30.6 GM/DL (32-36); Mean Corpuscular Volume 82.6 FL (87-102); Monocytes # 1.1 10*3/uL (0.11-0.8); Neutrophils % 60.1 % (38.7-73.9); Platelet Count 158 T/CUMM (130-400); Red Blood Count 4.66 MC/CUMM (3.8-5.5); White Blood Count 10.9 T/CUMM (4-12)
[2022-08-03 06:42] LABS: Calcium 9.4 MG/DL (8.5-10.1); Osmolality,Calculated 287.3 MOS/KG (273-304); Potassium 4.1 MMOL/L (3.5-5.1)
[2022-08-03] MEDS: DOCUSATE SODIUM 100 MG CAPSULE PO SCH ×2 (09:19→22:10)
[2022-08-03] MEDS: POLYETHYLENE GLYCOL POWDER 17 GM PACK PO SCH (09:20)
[2022-08-03] MEDS: SIMVASTATIN 20 MG TABLET PO SCH (09:20)
[2022-08-03] MEDS: PANTOPRAZOLE 40 MG TABLET PO SCH (09:20)
[2022-08-03] MEDS: HEPARIN 5,000 UNIT/1 ML VIAL SUBCUT SCH (09:21)
[2022-08-03] MEDS: FLUoxetine 20 MG CAPSULE PO SCH (09:25)
[2022-08-03] MEDS: CYPROHEPTADINE 4 MG TABLET PO SCH (22:10)
[2022-08-03] MEDS: QUEtiapine 25 MG TABLET PO SCH (22:10)
[2022-08-04] MEDS: INSULIN LISPRO 100 UNIT/ML SUBCUT SCH ×6 (04:12→21:45)
[2022-08-04] MEDS ORDERED: ACETAMINOPHEN 650 MG SUPP RECTAL ONE (04:47)
[2022-08-04] MEDS: CETIRIZINE 10 MG TABLET PO SCH (05:03)
[2022-08-04] MEDS: VANCOMYCIN INJ 1,000 MG in SODIUM CHLORIDE 0.9% 250 ML IV SCH (05:42)
[2022-08-04 06:41] LABS: Basophils % 0.3 % (0.0-0.8); Eosinophils # 0.1 10*3/uL (0.0-0.87); Eosinophils % 0.6 % (0.00-10.9); Hematocrit 33.8 VOL% (35.7-47.0); Immature Granulocytes % 0.6 %; Immature Granulocytes Absolute 0.08 #; Lymphocytes # 1.7 10*3/uL (1.4-4.0); Lymphocytes % 12.4 % (21.3-54.2); Mean Corpuscular HGB Conc 32.5 GM/DL (32-36); Mean Corpuscular Volume 78.4 FL (87-102); Mean Platelet Volume 12.8 FL (9.6-12.0); Monocytes # 1.5 10*3/uL (0.11-0.8); Monocytes % 10.4 % (1.7-12.7); Neutrophils % 75.7 % (38.7-73.9); Platelet Count 162 T/CUMM (130-400); Red Blood Count 4.31 MC/CUMM (3.8-5.5); Red Cell Distribution Width 14.6 % (9.3-17.3); White Blood Count 14.1 T/CUMM (4-12)
[2022-08-04 06:47] LABS: PT Patient Result 11.1 SECS (10.1-12.1)
[2022-08-04 07:03] LABS: Calcium 9.7 MG/DL (8.5-10.1); Osmolality,Calculated 284.7 MOS/KG (273-304); Potassium 3.8 MMOL/L (3.5-5.1)
[2022-08-04] MEDS ORDERED: LACTATED RINGERS 1,000 ML IV SCH (08:00)
[2022-08-04] MEDS: POLYETHYLENE GLYCOL POWDER 17 GM PACK PO SCH (08:24)
[2022-08-04] MEDS: DOCUSATE SODIUM 100 MG CAPSULE PO SCH (08:24)
[2022-08-04] MEDS: FLUoxetine 20 MG CAPSULE PO SCH (08:25)
[2022-08-04] MEDS: SIMVASTATIN 20 MG TABLET PO SCH (08:25)
[2022-08-04] MEDS: PANTOPRAZOLE 40 MG TABLET PO SCH (08:25)
[2022-08-04] MEDS ORDERED: ETOMIDATE 20 MG/10 ML VIAL IV ONE (12:11)
[2022-08-04] MEDS ORDERED: LIDOCAINE 2% 5 ML VIAL ONE (12:11)
[2022-08-04] MEDS ORDERED: propofoL 200 MG/20 ML VIAL IV ONE (12:11)
[2022-08-04] MEDS ORDERED: LABETALOL 20 MG/4 ML SYRINGE IV ONE (12:15)
[2022-08-04] MEDS ORDERED: OXYBUTYNIN 5 MG TABLET PEG PRN (13:00)
[2022-08-04] MEDS ORDERED: LACTULOSE 20 GM/30 ML UDCUP PEG PRN (13:00)
[2022-08-04] MEDS: SODIUM CHLORIDE 23.4% CONC INJ 38.5 MEQ in STERILE WATER INJ 1,000 ML IV SCH ×2 (14:05→21:45)
[2022-08-04] MEDS ORDERED: CYPROHEPTADINE 4 MG TABLET PEG SCH (21:00)
[2022-08-04] MEDS: ACETAMINOPHEN 325 MG TABLET PEG PRN (21:04)
[2022-08-04] MEDS: DOCUSATE SODIUM 100 MG CAPSULE PEG SCH (21:05)
[2022-08-04] MEDS: QUEtiapine 25 MG TABLET PEG SCH (21:05)
[2022-08-04] MEDS ORDERED: IBUPROFEN 100 MG/5 ML UDCUP PO PRN (22:04)
[2022-08-05] MEDS: INSULIN LISPRO 100 UNIT/ML SUBCUT SCH ×5 (00:23→20:14)
[2022-08-05] MEDS: SODIUM CHLORIDE 23.4% CONC INJ 38.5 MEQ in STERILE WATER INJ 1,000 ML IV SCH ×2 (03:12→17:11)
[2022-08-05 04:56] LABS: Basophils % 0.1 % (0.0-0.8); Eosinophils # 0.1 10*3/uL (0.0-0.87); Hematocrit 29.2 VOL% (35.7-47.0); Hemoglobin 9.3 GM/DL (12.0-16.0); Immature Granulocytes % 0.6 %; Immature Granulocytes Absolute 0.08 #; Lymphocytes % 14.9 % (21.3-54.2); Mean Corpuscular HGB Conc 31.8 GM/DL (32-36); Mean Corpuscular Volume 79.6 FL (87-102); Mean Platelet Volume 12.9 FL (9.6-12.0); Monocytes # 1.3 10*3/uL (0.11-0.8); Monocytes % 9.4 % (1.7-12.7); Platelet Count 138 T/CUMM (130-400); Red Blood Count 3.67 MC/CUMM (3.8-5.5); Red Cell Distribution Width 15.1 % (9.3-17.3); White Blood Count 13.4 T/CUMM (4-12)
[2022-08-05 05:17] LABS: Calcium 9.4 MG/DL (8.5-10.1); Potassium 3.3 MMOL/L (3.5-5.1)
[2022-08-05 05:24] LABS: Eosinophils 1 % (0-10); Hypochromia Slight; Lymphocytes 12 % (20-55); Microcytosis Slight; Platelet Estimate Normal; Total Cells Counted 100
[2022-08-05] MEDS: VANCOMYCIN INJ 1,000 MG in SODIUM CHLORIDE 0.9% 250 ML IV SCH (05:26)
[2022-08-05] MEDS: CETIRIZINE 10 MG TABLET PEG SCH (05:27)
[2022-08-05] MEDS: ACETAMINOPHEN 325 MG TABLET PEG PRN ×2 (06:08→11:03)
[2022-08-05 09:44] LABS: Phosphorous 3.4 MG/DL (2.5-4.9)
[2022-08-05] MEDS: DOCUSATE SODIUM 100 MG CAPSULE PEG SCH ×2 (11:03→20:58)
[2022-08-05] MEDS: OMEPRAZOLE ODT 20 MG TABLET PEG SCH (11:03)
[2022-08-05] MEDS: FLUoxetine 20 MG CAPSULE PEG SCH (11:03)
[2022-08-05] MEDS: SIMVASTATIN 20 MG TABLET PEG SCH (11:03)
[2022-08-05] MEDS: POLYETHYLENE GLYCOL POWDER 17 GM PACK PEG SCH (13:03)
[2022-08-05] MEDS: QUEtiapine 25 MG TABLET PEG SCH (20:58)
[2022-08-06] MEDS: INSULIN LISPRO 100 UNIT/ML SUBCUT SCH ×6 (01:55→22:41)
[2022-08-06] MEDS: SODIUM CHLORIDE 23.4% CONC INJ 38.5 MEQ in STERILE WATER INJ 1,000 ML IV SCH (05:22)
[2022-08-06 06:19] LABS: Basophils % 0.3 % (0.0-0.8); Eosinophils # 0.2 10*3/uL (0.0-0.87); Eosinophils % 1.6 % (0.00-10.9); Hemoglobin 8.8 GM/DL (12.0-16.0); Immature Granulocytes % 0.7 %; Immature Granulocytes Absolute 0.07 #; Lymphocytes # 1.5 10*3/uL (1.4-4.0); Mean Corpuscular HGB Conc 32.6 GM/DL (32-36); Monocytes # 1.1 10*3/uL (0.11-0.8); Monocytes % 10.6 % (1.7-12.7); Neutrophils % 72.8 % (38.7-73.9); Platelet Count 171 T/CUMM (130-400); Red Blood Count 3.46 MC/CUMM (3.8-5.5); Red Cell Distribution Width 15.2 % (9.3-17.3); White Blood Count 10.4 T/CUMM (4-12)
[2022-08-06 06:49] LABS: Calcium 8.9 MG/DL (8.5-10.1); Osmolality,Calculated 280.5 MOS/KG (273-304); Potassium 3.3 MMOL/L (3.5-5.1)
[2022-08-06] MEDS: CETIRIZINE 10 MG TABLET PEG SCH (07:10)
[2022-08-06] MEDS: VANCOMYCIN INJ 1,000 MG in SODIUM CHLORIDE 0.9% 250 ML IV SCH (07:10)
[2022-08-06] MEDS: OMEPRAZOLE ODT 20 MG TABLET PEG SCH (08:51)
[2022-08-06] MEDS: ACETAMINOPHEN 325 MG TABLET PEG PRN (08:51)
[2022-08-06] MEDS: SIMVASTATIN 20 MG TABLET PEG SCH (08:51)
[2022-08-06] MEDS: FLUoxetine 20 MG CAPSULE PEG SCH (08:53)
[2022-08-06] MEDS: POLYETHYLENE GLYCOL POWDER 17 GM PACK PEG SCH (08:53)
[2022-08-06] MEDS: DOCUSATE SODIUM 100 MG CAPSULE PEG SCH ×2 (08:53→21:02)
[2022-08-06] MEDS ORDERED: POTASSIUM CHLORIDE 20 MEQ TABLET PO ONE (16:43)
[2022-08-06] MEDS: cefTRIAXone 1,000 MG in SODIUM CHLORIDE 0.9% 100 ML IV SCH (17:22)
[2022-08-06 18:17] LABS: Bacteria,Urine Few /HPF (Few); RBC,Urine 2 /HPF (0-4); Squamous Epithelial Cell,Urine Occasional /HPF (0-10)
[2022-08-06 18:18] LABS: Bilirubin,Urine Negative (Negative); Glucose,Urine (UA) Negative (Negative); Ketones,Urine Trace mg/dL (Negative); Nitrite,Urine Negative (Negative); Protein,Urine Negative (Negative); Urine Appearance Clear (Clear); Urine Color Yellow (Yellow); Urine Specific Gravity <= 1.005 (1.001-1.035); Urine pH 5.5 (4.5-8.0)
[2022-08-06 18:19] LABS: Blood, Urine Negative (Negative); Urine Urobilinogen >= 8.0 eU/dL (<2.0)
[2022-08-06] MEDS: QUEtiapine 25 MG TABLET PEG SCH (21:01)
[2022-08-07] MEDS: INSULIN LISPRO 100 UNIT/ML SUBCUT SCH ×6 (02:36→21:29)
[2022-08-07 05:39] LABS: Basophils % 0.4 % (0.0-0.8); Eosinophils # 0.2 10*3/uL (0.0-0.87); Eosinophils % 1.6 % (0.00-10.9); Hematocrit 28.8 VOL% (35.7-47.0); Hemoglobin 9.4 GM/DL (12.0-16.0); Immature Granulocytes % 0.5 %; Immature Granulocytes Absolute 0.05 #; Lymphocytes # 1.6 10*3/uL (1.4-4.0); Mean Corpuscular HGB Conc 32.6 GM/DL (32-36); Mean Corpuscular Volume 77.2 FL (87-102); Mean Platelet Volume 12.9 FL (9.6-12.0); Monocytes # 1.2 10*3/uL (0.11-0.8); Neutrophils % 69.5 % (38.7-73.9); Platelet Count 219 T/CUMM (130-400); Red Blood Count 3.73 MC/CUMM (3.8-5.5); Red Cell Distribution Width 15.4 % (9.3-17.3); White Blood Count 9.7 T/CUMM (4-12)
[2022-08-07 06:10] LABS: Calcium 9.3 MG/DL (8.5-10.1); Osmolality,Calculated 279.7 MOS/KG (273-304); Potassium 3.4 MMOL/L (3.5-5.1)
[2022-08-07] MEDS: CETIRIZINE 10 MG TABLET PEG SCH (06:26)
[2022-08-07] MEDS: SIMVASTATIN 20 MG TABLET PEG SCH (08:20)
[2022-08-07] MEDS: DOCUSATE SODIUM 100 MG CAPSULE PEG SCH ×2 (08:20→20:41)
[2022-08-07] MEDS: FLUoxetine 20 MG CAPSULE PEG SCH (08:20)
[2022-08-07] MEDS: OMEPRAZOLE ODT 20 MG TABLET PEG SCH (08:20)
[2022-08-07] MEDS: POLYETHYLENE GLYCOL POWDER 17 GM PACK PEG SCH (08:20)
[2022-08-07] MEDS: ACETAMINOPHEN 325 MG TABLET PEG PRN (08:21)
[2022-08-07] MEDS: cefTRIAXone 1,000 MG in SODIUM CHLORIDE 0.9% 100 ML IV SCH (16:13)
[2022-08-07] MEDS: QUEtiapine 25 MG TABLET PEG SCH (20:41)
[2022-08-08] MEDS: INSULIN LISPRO 100 UNIT/ML SUBCUT SCH ×6 (00:13→21:44)
[2022-08-08] MEDS: CETIRIZINE 10 MG TABLET PEG SCH (06:12)
[2022-08-08 06:26] LABS: Basophils % 0.3 % (0.0-0.8); Eosinophils # 0.2 10*3/uL (0.0-0.87); Eosinophils % 1.6 % (0.00-10.9); Hematocrit 25.9 VOL% (35.7-47.0); Hemoglobin 8.6 GM/DL (12.0-16.0); Immature Granulocytes % 0.8 %; Immature Granulocytes Absolute 0.07 #; Lymphocytes # 1.8 10*3/uL (1.4-4.0); Lymphocytes % 18.8 % (21.3-54.2); Mean Corpuscular HGB Conc 33.2 GM/DL (32-36); Mean Platelet Volume 11.9 FL (9.6-12.0); Monocytes % 10.8 % (1.7-12.7); Neutrophils % 67.7 % (38.7-73.9); Platelet Count 246 T/CUMM (130-400); Red Blood Count 3.32 MC/CUMM (3.8-5.5); Red Cell Distribution Width 15.4 % (9.3-17.3); White Blood Count 9.3 T/CUMM (4-12)
[2022-08-08 06:44] LABS: Calcium 8.9 MG/DL (8.5-10.1); Osmolality,Calculated 286.4 MOS/KG (273-304); Potassium 3.6 MMOL/L (3.5-5.1)
[2022-08-08] MEDS: FLUoxetine 20 MG CAPSULE PEG SCH (09:24)
[2022-08-08] MEDS: OMEPRAZOLE ODT 20 MG TABLET PEG SCH (09:24)
[2022-08-08] MEDS: SIMVASTATIN 20 MG TABLET PEG SCH (09:24)
[2022-08-08] MEDS: POLYETHYLENE GLYCOL POWDER 17 GM PACK PEG SCH (09:24)
[2022-08-08] MEDS: glipiZIDE 5 MG TABLET PO SCH (09:24)
[2022-08-08] MEDS: DOCUSATE SODIUM 100 MG CAPSULE PEG SCH ×2 (09:24→21:45)
[2022-08-08] MEDS ORDERED: INSULIN GLARGINE 100 UNIT/ML SUBCUT SCH (21:00)
[2022-08-08] MEDS: QUEtiapine 25 MG TABLET PEG SCH (21:45)
[2022-08-09] MEDS: INSULIN LISPRO 100 UNIT/ML SUBCUT SCH ×4 (00:35→12:33)
[2022-08-09] MEDS: CETIRIZINE 10 MG TABLET PEG SCH (06:22)
[2022-08-09 06:23] LABS: Basophils # 0.1 10*3/uL (0.0-0.2); Basophils % 0.4 % (0.0-0.8); Eosinophils # 0.2 10*3/uL (0.0-0.87); Eosinophils % 1.7 % (0.00-10.9); Hematocrit 27.8 VOL% (35.7-47.0); Hemoglobin 8.8 GM/DL (12.0-16.0); Immature Granulocytes % 0.6 %; Immature Granulocytes Absolute 0.07 #; Lymphocytes # 2.1 10*3/uL (1.4-4.0); Lymphocytes % 18.3 % (21.3-54.2); Mean Corpuscular HGB Conc 31.7 GM/DL (32-36); Mean Corpuscular Volume 78.3 FL (87-102); Mean Platelet Volume 11.5 FL (9.6-12.0); Monocytes # 1.4 10*3/uL (0.11-0.8); Monocytes % 11.9 % (1.7-12.7); Neutrophils % 67.1 % (38.7-73.9); Platelet Count 310 T/CUMM (130-400); Red Blood Count 3.55 MC/CUMM (3.8-5.5); Red Cell Distribution Width 15.6 % (9.3-17.3); White Blood Count 11.3 T/CUMM (4-12)
[2022-08-09 07:02] LABS: Calcium 9.2 MG/DL (8.5-10.1); Osmolality,Calculated 279.7 MOS/KG (273-304)
[2022-08-09] MEDS: POLYETHYLENE GLYCOL POWDER 17 GM PACK PEG SCH (08:27)
[2022-08-09] MEDS: SIMVASTATIN 20 MG TABLET PEG SCH (08:57)
[2022-08-09] MEDS: OMEPRAZOLE ODT 20 MG TABLET PEG SCH (08:57)
[2022-08-09] MEDS: FLUoxetine 20 MG CAPSULE PEG SCH (08:57)
[2022-08-09] MEDS: DOCUSATE SODIUM 100 MG CAPSULE PEG SCH (08:57)
[2022-08-09] MEDS: glipiZIDE 5 MG TABLET PO SCH (08:57)
[2022-08-09 11:39] VITALS: BP 145/52
== END 2022-08-09 16:00 | disposition home health service (06) | DRG 683 ==
LOC: N.EDINP 13:17 → N.ED 13:17 → SUATTDRO 16:16 → N.2W 19:09 → SUATTDRO 08-02 13:33 → N.2W 08-07 05:29 → N.3E 08-07 20:16
PROVIDERS: ADMIT Internal Medicine; ATTEND Internal Medicine
PROC: EGDWPEG (ICD-10-PCS; 2022-08-04 12:05)